=== PATIENT | male | born 1990 | race African-American/Black ===

== ENCOUNTER 2025-01-15 23:18 | Emergency (ER) | payer OTHER, SELFPAY ==
[2025-01-15 23:26] VITALS: BP 118/58; PULSE 62; RESP 20; TEMP 36.1; O2SAT 98; BMI 33.5
--- NOTE | 2025-01-16 00:02 | ED_ITS ---
HPI - General Adult General Chief complaint: General Medical Stated complaint: mouth pain Time Seen by Provider: 01/15/25 23:45 Source: patient Mode of arrival: ambulatory Limitations: no limitations History of Present Illness ED Provider: DR. Hackett HPI narrative: This is a 34-year-old male came in for evaluation of mouth/throat pain x2 days on and off, patient is concern of drip pharyngitis which he had recently and treated with a full course of amoxicillin. No difficulty swallowing, no difficulty breathing, able to manage his own secretions with no drooling. No recent travel, no history of exposure to sick contacts. Related Data Allergies Allergy/AdvReac Type Severity Reaction Status Date / Time No Known Allergies Allergy Verified 01/15/25 23:29 Review of Systems Review of Systems: All other systems are reviewed and are negative Constitutional: Reports as per HPI and Reports no additional constitutional complaints Eyes: Reports as per HPI and Reports no additional eye complaints Reports system reviewed and no additional complaints, except as documented Cardiovascular: Reports as per HPI and Reports no additional cardiovascular complaints Respiratory: Reports as per HPI and Reports no additional respiratory complaints Gastrointestinal: Reports as per HPI and Reports no additional gastrointestinal complaints Genitourinary: Reports no additional female genitourinary complaints Musculoskeletal: Reports no additional musculoskeletal complaints Skin/Breast: Reports system reviewed and no additional complaints, except as docu Psychiatric: Reports no additional psychiatric complaints Endocrine: Reports no additional endocrine complaints Hematologic/Lymphatic: Reports no additional hematologic/lymphatic complaints Allergic/Immunologic: Reports no additional allergic/immunologic complaints Reports system reviewed and no additional complaints, except as documented and Reports Abnormal speech present [facility] Social History Social History Smoked in Last 30 Days: No Use of substances other than those prescribed or required for medical reasons: No Advance Directives: No Advance Directives Information Provided: Yes Do you have a plan to hurt others: No Plan Physical Exam ED Vital Signs: Vital Signs - 24 hr 01/15/25 23:26 Temperature 97.0 F Pulse Rate 62 Respiratory Rate 20 Blood Pressure 118/58 L Pulse Oximetry 98 BMI result Body Mass Index 33.5 Vital signs have been reviewed and appear to be correct. Blood pressure elevated. Heart rate normal. Respiratory rate normal. Temperature normal. Oxygen saturation normal. Appearance: Alert. Oriented X3. No acute distress. Head: Normal external exam. Normocephalic. Atraumatic. No Solano signs noted. No raccoon eyes noted Eyes: PERRLA. EOMI. Conjunctiva and sclera normal. Eyelids normal. ENT: TM's Normal. Pharynx normal. Uvula midline. Moist mucous membranes. No trismus noted. No drooling noted. No muffled voice noted. Neck: Normal inspection. Neck supple. FROM. No adenopathy. Thyroid Normal. No meningeal signs. No neck mass noted. CVS: Normal heart rate and rhythm. Heart sound normal. No murmurs noted. Pulses normal throughout. Respiratory: No respiratory distress. Painless inspiration. Breath sounds maribel l. No wheezes/rales/rhonchi noted. Chest nontender. No accessory muscle usage noted or decreased air movement noted. Abdomen: Soft and nontender. Bowel sounds normal in all 4 quadrants. No distention noted. No organomegaly noted. No visible injury noted. Back: No CVA tenderness. Full range of motion noted. Skin: Skin warm and dry. Normal skin color. Normal skin turgor. No rashes/lesions/lacerations noted. Extremities: No lower extremity edema. Extremities exhibit normal range of motion. Extremities nontender. Neuro: Oriented X 3. Cranial nerve exam: II-XII are grossly intact No motor deficit. No sensory deficit. Reflexes normal. Course Reevaluation(s) Reevaluation #1: 34-year-old male came in with sore throat, mouth pain, negative rapid strep for strep pharyngitis, negative also for viral upper respiratory infection. Time: 01:12 Medical Decision Making Differential Diagnosis Differential Diagnoses: The differential diagnosis associated with the presentation includes (Strep pharyngitis, FINISH PATCHER, viral pharyngitis.) Admission/Observation Consideration of admission/observation: Escalation of care including admiss ion/observation considered Lab Data MDM Lab Attestation statement: I reviewed the patient's lab results. Labs: Lab Results 01/15/25 01/16/25 Range/Units 23:44 00:21 Influenza Type A (PCR) NEGATIVE (Negative) Influenza Type B (PCR) NEGATIVE (Negative) RSV RNA Qual (PCR) NEGATIVE (Negative) SARS-CoV-2 RNA (RT-PCR) NEGATIVE (Negative) S. pyogenes GrpA RADHA Negative (Negative) Discharge Plan Discharge Clinical Impression: Acute sore throat Patient Disposition: Home, Self-Care Instructions: Pharyngitis (ED) Referrals: Karl Tierney MD [Primary Care Provider, Internal Medicine] Print Language: Gabonese
[2025-01-16 00:18] LABS: IDNOW Serial# 55D5AD1C; Strep A Nucleic Acid Negative (Negative)
--- OUTSIDE RECORDS SUMMARY | 2025-01-16 00:28 | XMS_ITS | Encounter Summary ---
Author Organization [facility] Address [address] [place] [address] Care Team Providers Care Stable Attendant Name Role Phone Pcp, No Primary Care Provider Unavailabl e Karl Tierney MD Primary Care Provider Unavail able Encounter Details Date Type Department Care Team (Late st Contact Info) Description 03/21/2024 Scanned Document [address] [place] [phone] Provider, Generic Social History Tobacco Use Types Packs/Day Years Used Date Smoking Tobacco: Never Passive Smoke Exposure: Never Smokeless Tobacco: Never Alcohol Use Standard Drinks/Week Comments Yes 0 (1 standard drink = 0.6 oz pur e alcohol) Sex and Gender Information Value Date Recorded Sex Assigned at Male 03/16/2024 8:28 AM EST Legal Sex Male 2:21 PM EST Gender Identity Male 03/16/2024 8:28 AM EST Sexual Orientation Choose not to disclose 2024 8:28 AM EST documented as of this encounter Plan of Treatment Not on file documented as of this encounter Visit Diagnoses Not on filedocumented in this encounter Care Teams Stable Attendant Relationship Specialty Start Date End Date Pcp, No PCP - General General Medicine 03/21/24 04/25/24 Karl Tierney MD PCP - General Internal Medicine 04/26/24 documented as of this encounter
--- OUTSIDE RECORDS SUMMARY | 2025-01-16 00:29 | XMS_ITS | Clinical Summary ---
Author Organization [facility] Address [address] [place] [address] Phone Care Team Providers Care Ironing Pleater Name Role Phone Karl Tierney MD Primary Care Provider [phone] Allergies No known active allergies Medications cholecalciferol (VITAMIN D-3) 50 mcg (2,000 unit) tablet Take by mouth. 4 Active fluticasone propionate (FLONASE) 50 mcg/actuation nasal spray Administer 1 spray into each nostril 1 (one) time each day. Shake gently. Before first use, prime pump. After use, clean tip and replace cap. 48 g 1 5 Active orphenadrine (NORFLEX) 100 mg 12 hr tablet Take 1 tablet (100 mg total) by mouth 2 (two) times a day if needed for muscle spasms for up to 5 days. Do not crush, chew, or split. 10 tablet 5 Active benzocaine (ORAJEL) 10 % mucosal gel Use in the mouth or throat 4 (four) times a day if needed for mucositis. 5.3 g 5 11/01/19 26 Active diazePAM (VALIUM) 5 mg tablet TAKE 1 TABLET BY MOUTH EVERY DAY AT BEDTIME FOR 14 DAYS NEEDED FOR SLEEP 5 Active triamcinolone (NASACORT) 55 mcg nasal inhaler INHALE ONE TO TWO SPRAYS INTO EACH NOSTRIL EVERY DAY 5 Active amoxicillin (AMOXIL) 500 mg capsule Take 1 capsule (500 mg total) by mouth every 12 (twelve) hours for 10 days. 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 Overview (12/27/2023): CXR & TB CLINIC Encounters Date Type Department Care Team Description 12/26/2024 12:01 AM EDT - 12/26/2024 2:33 AM EDT [facility] Emergency [address] [place] [phone] Zain Toscano MD Strep pharyngitis (Primary Dx) Discharge Disposition: Home or Self Care 12/21/2024 9:15 AM EDT Office Visit Walk-In Clinic - [address] [phone] Chapin Alcantar PORTFOLIO STRATEGIST Sensation of fullness in both ears (Primary Dx) 10/31/2024 12:04 AM EDT - 10/31/2024 12:40 AM EDT [address] [phone] Oral aphthous ulcer (Primary Dx) Discharge Disposition: Home or Self Care 10/24/2024 9:30 AM EDT Office Visit Internal Medicine - [address] [phone] Bridget Brannon NP Nasal congestion with rhinorrhea (Primary Dx); Throat tightness; Gastroesophageal reflux disease without esophagitis; Temporomandibular joint disease 10/20/2024 6:52 PM EDT - 10/20/2024 7:51 PM EDT [facility] Emergency [address] [place] [phone] Kathe Naylor MD TMJ tenderness, bilateral (Primary Dx) Discharge Disposition: Home or Self Care from Last 3 Months Immunizations Immunization Administration Dates Next Due DTP 03/02/1994, 1,1989,06/16,1989 [id number] (Pentacel) 2mo to less than 5yo 06/09/1990,03/09/1990 Hepatitis A Pediatric (Havri x; Vaqta) 12mo to less than 19yo 09/09/2000,06/19/1997 Hepatitis B Pediatric (Enger ix B; Recombivax HB) to less than 20 yo 09/09/2000,01/21/1999,12/19/1998 Influenza Quadravalent, MDCK , 0.5ml, preservative free (Flucelvax) 6mo and older 01/22/2021,12/07/2017 Influenza Quadravalent, MDCK , 0.5ml, with preservative (Flucelvax) 6mo and older 12/24/2016 Influenza trivalent, 0.5mL, preservative free (Fluarix; FluLaval; Fluzone) ages 6mo and older (Afluria) 3 years and older 12/21/2023,01/03/2019,12/31/2015,12/12,12/23/2013,12/06/2012,12/24/2011 ,12/22/2010,12/25/2009,11/28/2008,12/12,01/13/2007 MMR, measles mumps and rubel la Live (Priorix; M-M-R II) 12mo and older 02/21/1995,06/09/1990 Meningococcal MCV4P 08/25/2007 OPV 03/02/1994, 1,1989,04/29 PPD Test 08/25/2007 Td Tetanus diptheria (Tdvax) 7yo and older 11/07/2017,02/01/2001 Tdap Tetanus diptheria acell ular pertussis (Boostrix; Adacel) 7yo and older 08/25/2007 Varicella live (Varivax) 12m o and older 06/12/2003 Surgical History Surgery Date Site/Laterality Comments OTHER SURGICAL HISTORY PROCEDURE: DENIES PREVIOUS SURGERY Medical History Medical History Date Comments 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 DX:PPD positive; COMMENT: CXR & TB CLINIC Family History Medical History Relation Name Comments No Known Problems Brother 1 No Known Problems Brother 2 No Known Problems Father No Known Problems Maternal Grandfather No Known Problems Maternal Grandmother No Known Problems Mother No Known Problems Paternal Grandfather No Known Problems Paternal Grandmother No Known Problems Sister Relation Name Status Comments Brother 1 Alive 1974 Brother 2 Alive 1978 Father Alive Duran sutherland 10/12 Maternal Grandfather Maternal Grandmother Mother Alive Kia Ko 06/28/56 Paternal Grandfather Paternal Grandmother Sister Alive Social History Tobacco Use Types Packs/Day Years Used Date Smoking Tobacco: Never Smokeless Tobacco: Never Tobacco Cessation:Counseling Given: Not Answered Alcohol Use Standard Drinks/Week Comments No 0 (1 standard drink = 0.6 oz pur e alcohol) Housing Instability Answer Date Recorde d Are you worried that in the next 2 months you may not have stable housing? No 07/09/2024 Food Access & Nutrition Answer Date Rec orded Do you have access to a vari ety of food including fruits and vegetables? Yes 07/09/2024 Access to Healthcare Answer Date Record ed Within the last 3 months, ho w many times did you visit the emergency department for your medical care? 4 07/09/2024 Health Literacy Answer Date Recorded How often do you need to hav e someone help you when you read instructions, pamphlets, or other written material from your doctor or pharmacy? Never 07/09/2024 Caregiver: How often do you need to have someone help you when you read instructions, pamphlets, or other written material from your doctor or pharmacy? Not on file 07/09/2024 Financial Risk Answer Date Recorded How hard is it for you to pa y for the very basics like food, housing, medical care, and air conditioning / heating? Not very hard 07/09/2024 Transportation Answer Date Recorded Has the lack of transportati on kept you from meetings, work, or from getting things needed for daily living? No Has the lack of transportati on kept you from medical appointments or from getting medications? No 07/09/2024 Social Isolation Answer Date Recorded How often do you feel lonely or isolated from th ose around you? Rarely 07/09/2024 Food Risk Answer Date Recorded Within the past 12 months we worried whether our food would run out before we got money to buy more. Never true 07/09/2024 Within the past 12 months th e food we bought just didn't last and we didn't have money to get more. Never true 07/09/2024 Dependent Care Answer Date Recorded Do you need help finding or paying for care for your loved ones. For example, child support officer or elderly care for an older adult? No 07/09/2024 Education Answer Date Recorded Do you think completing more education or training, like finishing a GED, going to college, or learning a trade, would be helpful for you? No 07/09/2024 Employment and Income Answer Date Recor ded During the last four weeks, have you been actively looking for work? No 07/09/2024 Living Situation Answer Date Recorded What is your living situation? Unrecognized valu e 07/09/2024 Sex and Gender Information Value Date Recorded Sex Assigned at Male 04/18/2024 4:15 PM EST Legal Sex Male 10:04 AM EST Gender Identity Male 04/18/2024 4:15 PM EST Sexual Orientation Choose not to disclose 2024 4:15 PM EST Obstetrics History Last Filed Vital Signs Vital Sign Reading Time Taken Comments Blood Pressure 120/75 12/25/2024 11:19 PM EDT Pulse 65 12/25/2024 11:19 PM EDT Temperature 36.7 C (98.1 F) 12/25/2024 11:19 PM EDT Respiratory Rate 18 12/25/2024 11:19 PM EDT Oxygen Saturation 100% 12/25/2024 11:19 PM EDT Inhaled Oxygen Concentration - - Weight 109 kg (240 lb) 12/25/2024 11:19 PM EDT Height 180.3 cm (5' 11 ) 12/25/2024 11:19 PM EDT Body Mass Index 33.47 12/25/2024 11:19 PM EDT Plan of Treatment Upcoming Encounters Date Type Department Care Team (Late st Contact Info) Description 02/01/2025 8:20 AM EST Consult Gastroenterology - [address] [place] [phone] Candi Sutton NP [address] [facility] [address] [place] [address] Health Maintenance Due Date Last Done Comments HPV Vaccines (1 - 3-dose SCDM series) 02/25/2016 HIV Screening 02/09/2022 COVID-19 Vaccine (3 - season) 2024 07/16/2020, 06/25/2020 Influenza Vaccine (#1) 2024 , 01/30/2022, 01/22/2021, Additional history exists Social Influencers of Health Screening 07/09/2025 07/09/2024 DTaP,Tdap,and Td Vaccines (9 - Td or Tdap) 11/08/2027 11/07/2017, 08/25/2007, 02/01/2001, Additional history exists Cholesterol Screening (Lipid Panel) 06/21/2028 06/22/2023 RSV Immunization Adult Patients (1 - 1-dose 75+ series) 02/25/2064 HIB Vaccines Completed 06/09/1990, 03/09/1990 IPV Vaccines Completed 03/02/1994, 08/12, 06/09/1990, Additional history exists MMR Vaccines Completed 02/21/1995, 06/09/1990 Hepatitis A Vaccines Completed 09/09/2000, 06/19/18 98 Hepatitis B Vaccines Completed 09/09/2000, 01/21/1999, 12/19/1998 Varicella Vaccines Aged Out 06/12/2003 No longer eligible based on patient's age to complete this topic Meningococcal ACWY Vaccine Completed 08/25/2007 Hepatitis C Screening Completed 07/30/2021 Depression Screening Completed 07/09/2024 Meningococcal B Vaccine Aged Out No l onger eligible based on patient's age to complete this topic Pneumococcal Vaccine: Pediatrics (0 to 5 Years) and At-Risk Patients (6 to 49 Years) Aged Out No longer eligible based on patient's age to complete this topic RSV Immunization Patients Under 20 months Aged Out No longer eligible based on patient's age to complete this topic Procedures Procedure Name Priority Date/Time Associated Diagnosis Comments RAPID STREP A SCREEN STAT 12/26/2024 12:10 AM EDT LIPID PANEL Routine 06/22/2023 HEPATITIS C SCREENING Routine 07/30/2021 from Last 3 Months or Most Recently Relevant to Health Maintenance Results * (ABNORMAL) Rapid strep A screen (12/26/2024 12:10 AM EDT) Strep A Ag Positive(A ) Negative, Invalid 12/26/2024 1:42 AM EDT [facility] Swab Structure of anterior region of neck / Unknown Non-blood Collection / Unknown 12/26/2024 12:10 AM EDT 12/26/2024 1:24 AM EDT Zain Toscano MD LAB MICROBIOLOGY - GENERAL ORDERABLES Final Result [facility] [address] [place] [address], * (ABNORMAL) Lipid panel (06/22/2023) LDL/HDL Ratio 4 0 - 4 Triglycerides 54 0 - 150 mg/dL Cholesterol 202(A) 0 - 200 mg/dL HDL 46 >=40 mg/dL LDL Cholesterol 146(A) 0 - 100 mg/dL Blood Venous blood specimen / Unknown Vinny Rolon MD LAB BLOOD ORDERABLES Kiesha l Result * Hepatitis C Screening (07/30/2021) Pathologist [facility] Hepatitis C Screening Abstracted Historical Provider HEALTH MAINTENANCE Final Result from Last 3 Months or Most Recently Relevant to Health Maintenance Additional Health Concerns Infection Onset Date Last Indicated Streptococcus Group A 03/23/2024 12/26/2024 Insurance [facility] Care Teams Ironing Pleater Relationship Specialty Start Date End Date Karl Tierney MD [address] [place] [phone] PCP - General Internal Medicine 03/24/24
--- OUTSIDE RECORDS SUMMARY | 2025-01-16 00:29 | XMS_ITS | Clinical Summary ---
Author Organization [facility] Address [address] [place] [address] Care Team Providers Care Entry Manager Name Role Phone Karl Tierney MD Primary Care Provider Unavail able Allergies No known active allergies Medications famotidine (PEPCID) 40 MG tabletIndication s:Gastroesophage al reflux disease without esophagitis Take 1 tablet (40 mg total) by mouth nightly. 30 tablet 3 03/16/2024 Active nystatin (MYCOSTATIN) 721849 UNIT/ML suspensionIndica tions:Thrush Take 5 mL (500,000 Units total) by mouth 4 (four) times a day. Swish, gargle and spit out 100 mL 03/19/2024 Active diazepam (VALIUM) 5 MG tablet TAKE 1 TABLET BY MOUTH EVERY DAY AT BEDTIME FOR 14 DAYS NEEDED FOR SLEEP 04/21/2024 Active triamcinolone (NASACORT AQ) 55 MCG/ACT Aerosol nasal sprayIndications :Postnasal drip 2 sprays into each nostril daily. 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 Overview (03/16/2024): [facility] Resolved Problems Problem Noted Date Diagnosed Date Resolved Date Acute COVID-19 11/28/2023 04/16/2024 Encounters Date Type Department Care Team Description 01/03/2025 8:00 AM EDT Office Visit [facility] [address] [place] [phone] David Patricio MD Chronic tonsillitis (Primary Dx); Gastroesophageal reflux disease without esophagitis; Recurrent tonsillitis 11/06/2024 7:45 AM EDT Office Visit [facility] [address] [phone] David Patricio MD Gastroesophageal reflux disease without esophagitis (Primary Dx); Chronic tonsillitis from Last 3 Months Immunizations Immunization Administration Dates Next Due DTP 03/02/1994, 1,1989,06/16,1989 DTaP / HiB / IPV 06/09/1990,03/09/1990 Hep A, 2 Dose 09/09/2000,06/19/1997 Hep B, Adolescent or Pediatric 09/09/2000,1998,12/19/1998 Influenza, Quadrivalent (FLU CELVAX) MDCK, Preservative Free IM 01/30/2022,01/22/2021,12/07/2017 Influenza, Trivalent (FLUARI X, AFLURIA, FLULAVAL, FLUZONE) Preservative Free IM 12/21/2023,01/03/2019,12/31/2015,12/12,12/23/2013,12/06/2012,12/24/2011 ,12/22/2010,12/25/2009,11/28/2008,12/12,01/13/2007 MMR 02/21/1995,06/09/1990 Meningococcal MCV4P (Menactra) 08/25/2007 OPV 03/02/1994, 1,1989,04/29 PPD Test 08/25/2007 Tdap 08/25/2007 Varicella 06/12/2003 Social History Tobacco Use Types Packs/Day Years Used Date Smoking Tobacco: Never Passive Smoke Exposure: Never Smokeless Tobacco: Never Tobacco Cessation:Counseling Given: Not Answered Alcohol Use Standard Drinks/Week Comments Yes 0 (1 standard drink = 0.6 oz pur e alcohol) Sex and Gender Information Value Date Recorded Sex Assigned at Male 03/16/2024 8:28 AM EST Legal Sex Male 2:21 PM EST Gender Identity Male 03/16/2024 8:28 AM EST Sexual Orientation Choose not to disclose 2024 8:28 AM EST Last Filed Vital Signs Vital Sign Reading Time Taken Comments Blood Pressure 118/77 03/21/2024 3:03 PM EST Pulse 62 03/21/2024 3:03 PM EST Temperature 36.4 C (97.6 F) 03/21/2024 3:03 PM EST Respiratory Rate 12 03/21/2024 3:03 PM EST Oxygen Saturation 99% 03/21/2024 3:03 PM EST Inhaled Oxygen Concentration - - Weight 111 kg (245 lb) 01/03/2025 7:45 AM EDT Height 180.3 cm (5' 11 ) 01/03/2025 7:45 AM EDT Body Mass Index 34.17 01/03/2025 7:45 AM EDT Plan of Treatment Health Maintenance Due Date Last Done Comments Hepatitis C Virus Screening 1989 HIV Screening 2002 DTaP/Tdap/Td Vaccines (7 - Td or Tdap) 08/24/2017 08/25/2007, 03/02/1994, 08/25/1990, Additional history exists Influenza Vaccine 10/12/2024 12/21/2023, , 01/30/2022, Additional history exists COVID-19 Vaccine ( season) 2024 Hepatitis B Vaccines Completed 09/09/2000, 01/21/1999, 12/19/1998 HPV Vaccines (No Doses Required) Completed Pneumococcal Vaccine: Pediatric (0-5 Years) and At-Risk Patients (6 to 49 Years) Aged Out No longer eligible based on patient's age to complete this topic Procedures Procedure Name Priority Date/Time Associated Diagnosis Comments COMPLETE BLOOD COUNT, WITHOUT DIFFERENTIAL Routine 01/03/2025 9:18 AM EDT Recurrent tonsillitis IMMUNOGLOBULIN A (IGA), SERUM Routine 01/03/2025 9:18 AM EDT Recurrent tonsillitis IMMUNOGLOBULIN G SUBCLASSES (ACTIVE) Routine 01/03/2025 9:18 AM EDT Recurrent tonsillitis from Last 3 Months Results * Immunoglobulin G Subclasses (01/03/2025 9:18 AM EDT) Pathologist [facility] IgG 1 795 382 - 929 mg/dL [facility] IgG 2 496 241 - 700 mg/dL [facility] IgG 3 77 22 - 178 mg/dL [facility] IgG 4 22.2 4 - 86 mg/dL [facility] IgG, Serum 1,438 600 - 1,640 mg/dL [facility] Blood specimen / Unknown 01/03/2025 9:18 AM EDT 01/03/2025 9:18 AM EDT us David Patricio MD LAB BLOOD ORDERABLES Final Re sult [facility] [address] [place] [phone] * COMPLETE BLOOD COUNT, WITHOUT DIFFERENTIAL (01/03/2025 9:18 AM EDT) Pathologist [facility] White Blood Cell Count 5.8 3.8 - 10.8 Thousand/u L [facility] Red Blood Cell Count 4.87 4.20 - 5.80 Million/uL [facility] Hemoglobin 14.6 13.2 - 17.1 g/dL [facility] Hematocrit 42.8 38.5 - 50.0 % [facility] MCV 87.9 80.0 - 100.0 fL [facility] MCH 30.0 27.0 - 33.0 pg [facility] MCHC 34.1 32.0 - 36.0 g/dL [facility] Comment: For adults, a slight decrease in the calculated MCHC value (in the range of 30 to 32 g/dL) is most likely not clinically significant; however, it should be interpreted with caution in correlation with other red cell parameters and the patient's clinical condition. RDW 12.2 11.0 - 15.0 % [facility] Platelet Count 254 140 - 400 Thousand/u L [facility] MPV 9.2 7.5 - 12.5 fL [facility] Blood specimen / Unknown 01/03/2025 9:18 AM EDT 01/03/2025 9:18 AM EDT us David Patricio MD LAB BLOOD ORDERABLES Final Re sult Performing Organization Address City/[facility]/ZIP Co de Phone Number [facility] [address] [place] [phone] * IMMUNOGLOBULIN A (IGA), SERUM (01/03/2025 9:18 AM EDT) Immunoglobulin A (IgA) 223 47 - 310 mg/dL [facility] Blood specimen / Unknown 01/03/2025 9:18 AM EDT 01/03/2025 9:18 AM EDT us David Patricio MD LAB BLOOD ORDERABLES Final Re sult Performing Organization Address City/[facility] Co de Phone Number [facility] [address] [place] [address] from Last 3 Months Insurance [facility] Care Teams Entry Manager Relationship Specialty Start Date End Date Karl Tierney MD PCP - General Internal Medicine 04/26/24
--- OUTSIDE RECORDS SUMMARY | 2025-01-16 00:29 | XMS_ITS ---
Author Name [facility] Organization Unknown Results Test Name/Text Value Interpretation Date Range Source Bacteria Throat Cult SEE NOTE Normal 03/24/2024 [facility] History of Medication Use Medication Directions Dispensed Refills Start Date End Date Stat us diazepam (VALIUM) 5 MG tablet TAKE 1 TABLET BY MOUTH EVERY DAY AT BEDTIME FOR 14 DAYS NEEDED FOR SLEEP 04/21/2024 active fluconazole (diFLUcan) 100 MG tablet Take 1 tablet (100 mg total) by mouth daily. Take 2 tablets today then take 1 tablet by mouth daily. 03/21/2024 03/30/2024 active nystatin (MYCOSTATIN) [id number] UNIT/ML suspension Take 5 mL (500,000 Units total) by mouth 4 (four) times a day. Swish, gargle and spit out 03/19/2024 active famotidine (PEPCID) 40 MG tablet Take 1 tablet (40 mg total) by mouth nightly. 03/16/2024 active triamcinolone (NASACORT AQ) 55 MCG/ACT Aerosol nasal spray 2 sprays into each nostril daily. 03/16/2024 active Problems Problem Status Onset Date Problem Type Date of Resoluti on Source Class 2 obesity active 2024-03-16 ProblemAct [facility] Vitamin D deficiency active 2023-06-22 ProblemAct [facility] PPD positive active 2007-08-28 ProblemAct [facility] Post-nasal drip active 2024-04-27 ProblemAct [facility] Gastroesophageal reflux disease without esophagitis active 2024-04-27 ProblemAct [facility] Chronic rhinitis active 2024-04-27 ProblemAct [facility] Rib pain on left side active 2023-11-28 ProblemAct [facility] Immunizations Vaccine Date Source Lot Number Status Influenza, Trivalent (FLUARI X, AFLURIA, FLULAVAL, FLUZONE) Preservative Free IM 12/21/2023 [facility] [id number] completed Influenza, Trivalent (FLUARI X, AFLURIA, FLULAVAL, FLUZONE) Preservative Free IM [facility]/20[facility] [id number] completed Influenza, Trivalent (FLUARI X, AFLURIA, FLULAVAL, FLUZONE) Preservative Free IM 12/21/2023 [facility] [id number] completed Influenza, Trivalent (FLUARI X, AFLURIA, FLULAVAL, FLUZONE) Preservative Free IM 12/21/2023 [facility] [id number] completed Influenza, Quadrivalent (FLU CELVAX) MDCK, Preservative Free IM 01/30/2022 [facility] [id number] completed Influenza, Quadrivalent (FLU CELVAX) MDCK, Preservative Free IM 01/30/2022 [facility] [id number] completed Influenza, Quadrivalent (FLU CELVAX) MDCK, Preservative Free IM 01/30/2022 [facility] [id number] completed Influenza, Quadrivalent (FLU CELVAX) MDCK, Preservative Free IM 01/30/2022 [facility] [id number] completed Influenza, Quadrivalent (FLU CELVAX) MDCK, Preservative Free IM 01/22/2021 [facility] [id number] completed Influenza, Quadrivalent (FLU CELVAX) MDCK, Preservative Free IM 01/22/2021 [facility] [id number] completed Influenza, Quadrivalent (FLU CELVAX) MDCK, Preservative Free IM 01/22/2021 [facility] [id number] completed Influenza, Quadrivalent (FLU CELVAX) MDCK, Preservative Free IM 01/22/2021 [facility] [id number] completed Influenza, Trivalent (FLUARI X, AFLURIA, FLULAVAL, FLUZONE) Preservative Free IM 01/03/2019 [facility] completed Influenza, Trivalent (FLUARI X, AFLURIA, FLULAVAL, FLUZONE) Preservative Free IM 01/03/2019 [facility] completed Influenza, Trivalent (FLUARI X, AFLURIA, FLULAVAL, FLUZONE) Preservative Free IM 01/03/2019 [facility] completed Influenza, Quadrivalent (FLU CELVAX) MDCK, Preservative Free IM 12/07/2017 [facility] [id number] completed Influenza, Quadrivalent (FLU CELVAX) MDCK, Preservative Free IM 12/07/2017 [facility] [id number] completed Influenza, Quadrivalent (FLU CELVAX) MDCK, Preservative Free IM 12/07/2017 [facility] [id number] completed Influenza, Quadrivalent (FLU CELVAX) MDCK, Preservative Free IM 12/07/2017 [facility] [id number] completed Influenza, Trivalent (FLUARI X, AFLURIA, FLULAVAL, FLUZONE) Preservative Free IM 12/31/2015 [facility] [id number] completed Influenza, Trivalent (FLUARI X, AFLURIA, FLULAVAL, FLUZONE) Preservative Free IM 12/31/2015 [facility] [id number] completed Influenza, Trivalent (FLUARI X, AFLURIA, FLULAVAL, FLUZONE) Preservative Free IM 12/31/2015 [facility] [id number] completed Influenza, Trivalent (FLUARI X, AFLURIA, FLULAVAL, FLUZONE) Preservative Free IM 12/12/2014 [facility] [id number] completed Influenza, Trivalent (FLUARI X, AFLURIA, FLULAVAL, FLUZONE) Preservative Free IM 12/12/2014 [facility] [id number] completed Influenza, Trivalent (FLUARI X, AFLURIA, FLULAVAL, FLUZONE) Preservative Free IM 12/12/2014 [facility] [id number] completed Influenza, Trivalent (FLUARI X, AFLURIA, FLULAVAL, FLUZONE) Preservative Free IM 12/12/2014 [facility] [id number] completed Influenza, Trivalent (FLUARI X, AFLURIA, FLULAVAL, FLUZONE) Preservative Free IM 12/23/2013 [facility] completed Influenza, Trivalent (FLUARI X, AFLURIA, FLULAVAL, FLUZONE) Preservative Free IM 12/23/2013 [facility] completed Influenza, Trivalent (FLUARI X, AFLURIA, FLULAVAL, FLUZONE) Preservative Free IM 12/23/2013 [facility] completed Influenza, Trivalent (FLUARI X, AFLURIA, FLULAVAL, FLUZONE) Preservative Free IM 12/23/2013 [facility] completed Influenza, Trivalent (FLUARI X, AFLURIA, FLULAVAL, FLUZONE) Preservative Free IM 12/06/2012 [id number] completed Influenza, Trivalent (FLUARI X, AFLURIA, FLULAVAL, FLUZONE) Preservative Free IM 12/06/2012 [id number] completed Influenza, Trivalent (FLUARI X, AFLURIA, FLULAVAL, FLUZONE) Preservative Free IM 12/06/2012 [id number] completed Influenza, Trivalent (FLUARI X, AFLURIA, FLULAVAL, FLUZONE) Preservative Free IM 12/24/2011 [id number] completed Influenza, Trivalent (FLUARI X, AFLURIA, FLULAVAL, FLUZONE) Preservative Free IM 12/24/2011 [id number] completed Influenza, Trivalent (FLUARI X, AFLURIA, FLULAVAL, FLUZONE) Preservative Free IM 12/24/2011 [id number] completed Influenza, Trivalent (FLUARI X, AFLURIA, FLULAVAL, FLUZONE) Preservative Free IM 12/22/2010 [id number] completed Influenza, Trivalent (FLUARI X, AFLURIA, FLULAVAL, FLUZONE) Preservative Free IM 12/22/2010 [facility] [id number] completed Influenza, Trivalent (FLUARI X, AFLURIA, FLULAVAL, FLUZONE) Preservative Free IM 12/22/2010 [id number] completed Influenza, Trivalent (FLUARI X, AFLURIA, FLULAVAL, FLUZONE) Preservative Free IM 12/22/2010 [id number] completed Influenza, Trivalent (FLUARI X, AFLURIA, FLULAVAL, FLUZONE) Preservative Free IM 12/25/2009 [id number] completed Influenza, Trivalent (FLUARI X, AFLURIA, FLULAVAL, FLUZONE) Preservative Free IM 12/25/2009 [place] [id number] completed Influenza, Trivalent (FLUARI X, AFLURIA, FLULAVAL, FLUZONE) Preservative Free IM 12/25/2009 [id number] completed Influenza, Trivalent (FLUARI X, AFLURIA, FLULAVAL, FLUZONE) Preservative Free IM 12/25/2009 [facility] [id number] completed Influenza, Trivalent (FLUARI X, AFLURIA, FLULAVAL, FLUZONE) Preservative Free IM 11/28/2008 [facility] [id number] completed Influenza, Trivalent (FLUARI X, AFLURIA, FLULAVAL, FLUZONE) Preservative Free IM 11/28/2008 [facility] [id number] completed Influenza, Trivalent (FLUARI X, AFLURIA, FLULAVAL, FLUZONE) Preservative Free IM 11/28/2008 [facility] [id number] completed Influenza, Trivalent (FLUARI X, AFLURIA, FLULAVAL, FLUZONE) Preservative Free IM 12/25/2007 [facility] [id number] completed Influenza, Trivalent (FLUARI X, AFLURIA, FLULAVAL, FLUZONE) Preservative Free IM 12/25/2007 [facility] [id number] completed Influenza, Trivalent (FLUARI X, AFLURIA, FLULAVAL, FLUZONE) Preservative Free IM 12/25/2007 [facility] [id number] completed Meningococcal MCV4P (Menactra) 08/25/2007 [facility] [id number] AA completed Meningococcal MCV4P (Menactra) 08/25/2007 [facility] [id number] AA completed Meningococcal MCV4P (Menactra) 08/25/2007 [facility] [id number] AA completed Meningococcal MCV4P (Menactra) 08/25/2007 [facility] [id number] AA completed PPD Test 08/25/2007 [facility] [id number] completed PPD Test 08/25/2007 [facility] [id number] completed PPD Test 08/25/2007 [facility] [id number] completed Tdap 08/25/2007 [facility] [id number] completed Tdap 08/25/2007 [facility] [id number] completed Tdap 08/25/2007 [facility] [id number] completed Influenza, Trivalent (FLUARI X, AFLURIA, FLULAVAL, FLUZONE) Preservative Free IM 01/13/2007 [facility] [id number] completed Influenza, Trivalent (FLUARI X, AFLURIA, FLULAVAL, FLUZONE) Preservative Free IM 01/13/2007 [facility] [id number] completed Influenza, Trivalent (FLUARI X, AFLURIA, FLULAVAL, FLUZONE) Preservative Free IM 01/13/2007 [facility] [id number] completed Influenza, Trivalent (FLUARI X, AFLURIA, FLULAVAL, FLUZONE) Preservative Free IM 01/13/2007 [facility] [id number] completed Varicella 06/12/2003 [facility] completed Varicella 06/12/2003 [facility] completed Varicella 06/12/2003 [facility] completed Varicella 06/12/2003 [facility] completed Hep A, 2 Dose 09/09/2000 [facility] completed Hep A, 2 Dose 09/09/2000 [facility] completed Hep A, 2 Dose 09/09/2000 [facility] completed Hep A, 2 Dose 09/09/2000 [facility] completed Hep B, Adolescent or Pediatric 09/09/2000 [facility] completed Hep B, Adolescent or Pediatric 09/09/2000 [facility] completed Hep B, Adolescent or Pediatric 09/09/2000 [facility] completed Hep B, Adolescent or Pediatric 01/21/1999 [facility] completed Hep B, Adolescent or Pediatric 01/21/1999 [facility] completed Hep B, Adolescent or Pediatric 01/21/1999 [facility] completed Hep B, Adolescent or Pediatric 12/19/1998 [facility] completed Hep B, Adolescent or Pediatric 12/19/1998 [facility] completed Hep B, Adolescent or Pediatric 12/19/1998 [facility] completed Hep A, 2 Dose 06/19/1997 [facility] completed Hep A, 2 Dose 06/19/1997 [facility] completed Hep A, 2 Dose 06/19/1997 [facility] completed MMR 02/21/1995 [facility] completed MMR 02/21/1995 [facility] completed MMR 02/21/1995 [facility] completed DTP 03/02/1994 [facility] completed DTP 03/02/1994 [facility] completed DTP 03/02/1994 [facility] completed DTP 03/02/1994 [facility] completed OPV 03/02/1994 [facility] completed OPV 03/02/1994 [facility] completed OPV 03/02/1994 [facility] completed DTP 08/25/1990 [facility] completed DTP 08/25/1990 [facility] completed DTP 08/25/1990 [facility] completed OPV 08/25/1990 [facility] completed OPV 08/25/1990 [facility] completed OPV 08/25/1990 [facility] completed OPV 08/25/1990 [facility] completed DTaP / HiB / IPV 06/09/1990 [facility] complete d DTaP / HiB / IPV 06/09/1990 [facility] complete d DTaP / HiB / IPV 06/09/1990 [facility] complete d MMR 06/09/1990 [facility] completed MMR 06/09/1990 [facility] completed MMR 06/09/1990 [facility] completed MMR 06/09/1990 [facility] completed DTaP / HiB / IPV 03/09/1990 [facility] complete d DTaP / HiB / IPV 03/09/1990 [facility] complete d DTaP / HiB / IPV 03/09/1990 [facility] complete d DTP 1989 [facility] completed DTP 1989 [facility] completed DTP 1989 [facility] completed DTP 1989 [facility] completed DTP 1989 [facility] completed DTP 1989 [facility] completed DTP 1989 [facility] completed OPV 1989 [facility] completed OPV 1989 [facility] completed OPV 1989 [facility] completed OPV 1989 [facility] completed DTP 1989 [facility] completed DTP 1989 [facility] completed DTP 1989 [facility] completed OPV 1989 [facility] completed OPV 1989 [facility] completed OPV 1989 [facility] completed OPV 1989 [facility] completed Encounters Encounter Type Encounter Reason Primary Diagnosis Location Date Ambulatory Difficulty Swallowing Difficulty Swallowing [facility] 01/03/2025 Ambulatory Laryngitis Laryngitis [facility] 11/06/2024 Ambulatory Follow-up Follow-up [facility] 06/28/2024 Ambulatory Follow-up Follow-up [facility] 04/26/2024 Ambulatory Candidal stomatitis [facility]idal stomatitis [facility] 03/21/2024 Ambulatory Post Nasal Drip Post Nasal Drip [facility] 03/16/2024 Care Team Organization Name Specialty Phone Email Start Date End Da te [place] [facility] 01/03/2025 [facility] LLUVIA SIERRA [facility] 01/03/2025 [facility] 07/01/2024 [place] [facility] 04/26/2024 [place] [facility] NO PCP Primary Care 03/22/2024 [facility] 03/21/2024 [facility] 01/30/2024 [facility] Termed, PROVIDER Primary Care 02/23/202310/12 [facility] Nicolasa Alegria Primary Care 05/19/20222023 [facility] Carl Jacobs Primary Care 01/19/202210/30
--- OUTSIDE RECORDS SUMMARY | 2025-01-16 00:29 | XMS_ITS | Encounter Summary ---
Author Organization [facility] Address [address] [place] [address] Care Team Providers Care Check Pilot Name Role Phone Pcp, No Primary Care Provider Unavailabl e Karl Tierney MD Primary Care Provider Unavail able Encounter Details Date Type Department Care Team (Late st Contact Info) Description 03/21/2024 Scanned Document [address] [place] [phone] Provider, Generic Social History Tobacco Use Types [...] on filedocumented in this encounter Care Teams Check Pilot Relationship Specialty Start Date End Date Pcp, No PCP - General General Medicine 03/21/24 04/25/24 Karl Tierney MD PCP - General Internal Medicine 04/26/24 documented as of this encounter
[2025-01-16 01:03] LABS: Resp Syncy Virus RNA Qual PCR NEGATIVE (Negative); SARS COV2 PCR INHOUSE NEGATIVE (Negative)
[2025-01-16 01:21] VITALS: BP 118/58; PULSE 62; RESP 20; TEMP 36.1; O2SAT 98
== END 2025-01-16 01:22 | disposition home or self-care (01) ==
PROVIDERS: Emergency Provider Emergency Medicine; PCP Internal Medicine
DX: J02.9 Acute pharyngitis, unspecified (principal); Z03.818 Encounter for observation for suspected exposure to other biological agents ruled out
CPT/HCPCS: 87637; 87651; 99283; 99284

== ENCOUNTER 2025-01-29 23:23 | Emergency (ER) | payer OTHER, SELFPAY ==
--- NOTE | 2025-01-29 | ECG_ITS ---
Test Reason : DIZINESS Blood Pressure : */* mmHG Vent. Rate : 62 BPM Atrial Rate : 62 BPM P-R Int : 178 ms QRS Dur : 96 ms QT Int : 384 ms P-R-T Axes : 50 6 12 degrees QTcB Int : 389 ms Normal sinus rhythm Normal ECG No previous ECGs available Referred By: Generic ED Physician Electronically Signed By: STACY YA
[2025-01-29 23:37] VITALS: BP 105/53; PULSE 63; RESP 16; TEMP 36.3; O2SAT 97; BMI 34.1
[2025-01-30 00:03] LABS: MANUAL DIFF FLAG NO
[2025-01-30 00:04] LABS: Hematocrit 40.3 % (42.0-52.0); Hemoglobin 13.9 g/dl (14.0-18.0); Imm Gran Abs Auto 0.04 X10*3/uL (0.00-0.03); Imm Gran Pct Auto 0.7 % (0.0-0.4); Lymphocytes Absolute Auto 2.5 X10*3/uL (1.2-4.9); Mean Corpuscular HGB Conc 34.5 g/dl (31.0-36.0); Mean Corpuscular Hemoglobin 29.5 pg (27.0-33.0); Mean Corpuscular Volume 85.6 fL (80.0-98.0); NRBC Abs Auto 0.000 X10*3/uL (0.0-0.012); NRBC Pct Auto 0.0 /100WBC (0.0-0.2); Platelet Count 207 X10*3/uL (160-400); Red Blood Count 4.71 X10*6/uL (4.60-5.80); White Blood Count 5.8 X10*3/uL (4.8-10.8)
[2025-01-30 00:17] LABS: Anion Gap 11 (12-20); Blood Urea Nitrogen 13 mg/dL (9-16); Calcium 9.2 mg/dL (8.4-10.2); Carbon Dioxide 27 mmol/L (22-29); Chloride 109 mmol/L (96-108); Creatinine Clr Calc Pharmacy 141.9; Estimated Glomerular Filt Rate > 60; Potassium 4.2 mmol/L (3.3-5.1); Sodium 143 mmol/L (135-145)
[2025-01-30 00:22] LABS: IDNOW Serial# 6674DD1D; Strep A Nucleic Acid Negative (Negative)
[2025-01-30 00:43] LABS: Resp Syncy Virus RNA Qual PCR NEGATIVE (Negative); SARS COV2 PCR INHOUSE NEGATIVE (Negative)
[2025-01-30 03:39] VITALS: BP 128/90; PULSE 64; RESP 20; TEMP 36.3; O2SAT 99
[2025-01-30] MEDS: Lidocaine HCl Viscous 2 % 15 ML SOLUTION MUCOUS MEM (04:01)
[2025-01-30] MEDS: Magnesium Hydrox/Alum Hydrox 30 ML ORAL.SUSP PO (04:01)
--- NOTE | 2025-01-30 05:08 | ED_ITS ---
HPI - General Adult General Chief complaint: Dizziness Stated complaint: strep throat? Time Seen by Provider: 01/30/25 02:34 Source: patient Mode of arrival: ambulatory Limitations: no limitations History of Present Illness ED Provider: Dr. Sakina Camarillo HPI narrative: Previously healthy 34-year-old male presenting with sore throat and jaw pain with the associated sensation of vertigo ongoing for the last 2 days or so. Describes dizziness with sitting up after lying down in bed. Symptoms started 2 days ago when he woke up from sleep. Describes sinus congestion but denies cough. Has been having a sore throat associated with swallowing particularly spicy foods. Pain is in the middle of his chest and lower throat. It is not located in the mouth. No known sick contacts or travel. Denies associated shortness of breath, vomiting, known sick contacts or recent travel. Has been swallowing his secretions without issue. Able to tolerate oral intake. Related Data Previous Rx's ?Medication ?Instructions ?Recorded omeprazole 20 mg capsule,delayed 20 mg PO DAILY #30 ca ps 01/30/25 release ondansetron 4 mg disintegrating 4 mg PO Q8H PRN nausea and 01/30/25 tablet vomiting #10 tabs Allergies Allergy/AdvReac Type Severity Reaction Status Date / Time No Known Allergies Allergy Verified 01/29/25 23:40 Review of Systems 2 Review of Systems: as per HPI, full review of systems performed and negative but for the above mentioned pertinent positives and negatives. [facility] Social History Social History Advance Directives: No Advance Directives Information Provided: Yes Physical Exam ED Exam Exam: GENERAL: Ill-Appearing, appears uncomfortable. SKIN: Normal skin color for ethnicity, warm, dry, no rashes noted. HEENT:? Normocephalic, atraumatic, no stridor, dry mucous membranes, no erythema in the posterior oropharynx, dentition intact, EOMI. NECK: Soft, supple, full ROM, midline structures nontender, no step-offs, no deformities, no lymphadenopathy. CHEST: Heart regular rhythm, no murmurs, symmetric chest rise and fall. PULMONARY: Clear to auscultation bilaterally, diminished at the bases, no labored breathing, no wheezes/rhales/rhonchi. ABDOMINAL: Soft, nondistended, nontender, positive bowel sounds in all quadrants. : Deferred. MUSCULOSKELETAL: Normal tone, full range of motion, no deformities, no peripheral edema. NEURO: Alert and oriented x3, CN II through XII intact, equal strength and sensation bilateral upper and lower extremities, no focal neurologic deficits.? PSYCHIATRIC: Flat affect, fluid speech, good eye contact and appropriate demeanor. Vital Signs: Vital Signs - 24 hr 01/29/25 23:37 01/30/25 03:39 Temperature 97.4 F 97.4 F Pulse Rate 63 64 Respiratory Rate 16 20 Blood Pressure 105/53 L 128/90 H Pulse Oximetry 97 99 Oxygen Delivery Method Room Air Room Air BMI result Body Mass Index 34.1 Medications Administered Discontinued Medications Generic Name Dose Route Start Last Admin Trade Name Freq PRN Reason Stop Dose Admin Al Hydroxide/Mg Hydroxide 30 ml 01/30/25 03:10 01/30/25 04:01 Magnesium Hydrox/Alum Hydrox 30 Ml Oral.Susp PO 01/30/25 03:11 30 ml ONCE ONE Administration Lidocaine HCl 15 ml 01/30/25 03:10 01/30/25 04:01 Lidocaine Hcl Viscous 2 % 15 Ml Solution MUCOUS MEM 01/30/25 03:11 15 ml ONCE ONE Administration Medical Decision Making Medical Decision Making [facility] Narrative: Patient presents today with a chief complaint of sore throat. Differential diagnosis includes pharyngitis, GERD, as well as ENT emergencies such as epiglottitis, retropharyngeal abscess, peritonsillar abscess, Pee's angina, angioedema, allergic reaction, among many others. On exam, patient is nontoxic, tolerating their secretions, without signs of respiratory distress. Strep swab is negative. Symptoms are consistent with vertigo and URI. Discuss this with him at length as well as importance of taking antacids to help with potential GERD which may be causing some of his chest discomfort and sore throat. Encouraged him to follow up with primary care. Discussed strict return precautions. Discharged home in stable condition. Differential Diagnosis Differential Diagnoses: The differential diagnosis associated with the presentation includes (as above) Admission/Observation Consideration of admission/observation: Escalation of care including admission/observation considered Lab Data [facility] Lab Attestation statement: I reviewed the patient's lab results. 01/29/25 23:54 01/29/25 23:54 Labs: Lab Results 11/01/29/25 01/29/25 Range/Units 23:51 23:52 23:54 WBC 5.8 (4.8-10.8) X10*3/uL RBC 4.71 (4.60-5.80) X10*6/uL Hgb 13.9 L (14.0-18.0) g/dl Hct 40.3 L (42.0-52.0) % MCV 85.6 (80.0-98.0) fL MCH 29.5 (27.0-33.0) pg MCHC 34.5 (31.0-36.0) g/dl RDW 12.0 (11.0-16.0) % Plt Count 207 (160-400) X10*3/uL MPV 9.0 L (9.4-12.4) fL Immature Gran % (Auto) 0.7 H (0.0-0.4) % Neut % (Auto) 46.3 (45-73) % Lymph % (Auto) 42.4 H (20-40) % [place] % (Auto) 8.5 (2-11) % Eos % (Auto) 1.6 (0-4) % Baso % (Auto) 0.5 (0-2) % Lymph # (Auto) 2.5 (1.2-4.9) X10*3/uL [place] # (Auto) 0.5 (0.1-1.2) X10*3/uL Eos # (Auto) 0.1 (0.0-0.4) X10*3/uL Baso # (Auto) 0.0 (0.0-0.2) X10*3/uL Abs Immat Gran (auto) 0.04 H (0.00-0.03) X10*3/uL Absolute Neuts (auto) 2.7 (2.0-8.3) x10*3/uL Absolute Nucleated RBC 0.000 (0.0-0.012) X10*3/uL Nucleated RBC % (auto) 0.0 (0.0-0.2) /100WBC Sodium 143 (135-145) mmol/L Potassium 4.2 (3.3-5.1) mmol/L Chloride 109 H (96-108) mmol/L Carbon Dioxide 27 (22-29) mmol/L Anion Gap 11 L (12-20) BUN 13 (9-16) mg/dL Creatinine 0.92 (0.5-1.4) mg/dL Estim Creat Clear Calc 141.9 Estimated GFR > 60 Random Glucose 94 (60-115) mg/dL Calcium 9.2 (8.4-10.2) mg/dL Monoscreen (Negative) Influenza Type A (PCR) NEGATIVE (Negative) Influenza Type B (PCR) NEGATIVE (Negative) RSV RNA Qual (PCR) NEGATIVE (Negative) SARS-CoV-2 RNA (RT-PCR) NEGATIVE (Negative) S. pyogenes GrpA RADHA Negative (Negative) 01/30/25 Range/Units 04:21 WBC (4.8-10.8) X10*3/uL RBC (4.60-5.80) X10*6/uL Hgb (14.0-18.0) g/dl Hct (42.0-52.0) % MCV (80.0-98.0) fL MCH (27.0-33.0) pg MCHC (31.0-36.0) g/dl RDW (11.0-16.0) % Plt Count (160-400) X10*3/uL MPV (9.4-12.4) fL Immature Gran % (Auto) (0.0-0.4) % Neut % (Auto) (45-73) % Lymph % (Auto) (20-40) % [place] % (Auto) (2-11) % Eos % (Auto) (0-4) % Baso % (Auto) (0-2) % Lymph # (Auto) (1.2-4.9) X10*3/uL [place] # (Auto) (0.1-1.2) X10*3/uL Eos # (Auto) (0.0-0.4) X10*3/uL Baso # (Auto) (0.0-0.2) X10*3/uL Abs Immat Gran (auto) (0.00-0.03) X10*3/uL Absolute Neuts (auto) (2.0-8.3) x10*3/uL Absolute Nucleated RBC (0.0-0.012) X10*3/uL Nucleated RBC % (auto) (0.0-0.2) /100WBC Sodium (135-145) mmol/L Potassium (3.3-5.1) mmol/L Chloride (96-108) mmol/L Carbon Dioxide (22-29) mmol/L Anion Gap (12-20) BUN (9-16) mg/dL Creatinine (0.5-1.4) mg/dL Estim Creat Clear Calc Estimated GFR Random Glucose (60-115) mg/dL Calcium (8.4-10.2) mg/dL Monoscreen Negative (Negative) Influenza Type A (PCR) (Negative) Influenza Type B (PCR) (Negative) RSV RNA Qual (PCR) (Negative) SARS-CoV-2 RNA (RT-PCR) (Negative) S. pyogenes GrpA RADHA (Negative) Independent Interpretation I performed an independent interpretation of an: EKG Interpretation: My independent interpretation of the ECG reveals normal sinus rhythm with rate of62 , normal axis, normal intervals, no ST elevations or depressions to suggest ischemic changes, no previous for comparison. Radiology Impression Discussion of test interpretation with radiology: I have reviewed the radiologist's reading. Prescription Management I considered prescription management with: Pain Medication and Other (antacids) Social Determinants Patient?s care significantly limited by Social Determinants of Health including: Other Social Determinant of Health Discharge Plan Discharge Clinical Impression: Pharyngitis with viral syndrome, GERD with esophagitis Patient Disposition: Home, Self-Care Instructions: Pharyngitis (ED), GERD (Gastroesophageal Reflux Disease) (ED) Additional Instructions: Your throat pain may be related to acid reflux. You should start taking an antacid medication daily to help with this. Alternatively, the pain could be related to a viral infection that is just starting. Fortunately, your COVID, flu, strep and mononucleosis screens were all negative. This is very reassuring. That being said, we can not test for every virus that causes viral pharyngitis and you should continue to treat your symptoms with supportive care (Tylenol for pain, drinking plenty of fluids and resting as much as possible). Return to the emergency department immediately with any new or worsening symptoms including: Worsening pain despite medication, fevers greater than 100?, difficulty swallowing, chest pain, difficulty breathing, any new symptom that concerns you. Call 911 with any medical emergency. Prescriptions: New omeprazole 20 mg capsule,delayed release(DR/EC) 20 mg PO DAILY Qty: 30 0RF ondansetron 4 mg tablet,disintegrating 4 mg PO Q8H PRN (Reason: nausea and vomiting) Qty: 10 0RF Interventions: ED Discharge Assessment Last Done: 01/30/25 05:26 Discharge Date/Time: 01/30/25 05:26 Print Language: Bengali
[2025-01-30 05:26] VITALS: BP 128/90; PULSE 64; RESP 20; TEMP 36.3; O2SAT 99
--- OUTSIDE RECORDS SUMMARY | 2025-01-30 14:29 | XMS_ITS | Clinical Summary ---
Author Organization [facility] Address [address] [place] [address] Care Team Providers Care Light Rail Vehicle Operator Name Role Phone Karl Tierney MD Primary Care Provider Unavail able Allergies No known active allergies Medications famotidine (PEPCID) 40 MG tabletIndication s:Gastroesophage al reflux disease without esophagitis Take 1 tablet (40 mg total) by mouth nightly. 30 tablet 3 03/16/2024 Active nystatin (MYCOSTATIN) 581440 UNIT/ML suspensionIndica tions:Thrush Take 5 mL (500,000 [...] Description 01/03/2025 8:00 AM EDT Office Visit [facility] [address] [place] [phone] David Patricio MD Chronic tonsillitis (Primary Dx); Gastroesophageal reflux disease without esophagitis; Recurrent tonsillitis 11/06/2024 7:45 AM EDT Office Visit [facility] [address] [phone] David Patricio MD Gastroesophageal reflux [...] G Subclasses (01/03/2025 9:18 AM EDT) Pathologist [facility] IgG 1 795 382 - 929 mg/dL [facility] IgG 2 496 241 - 700 mg/dL [facility] IgG 3 77 22 - 178 mg/dL [facility] IgG 4 22.2 4 - 86 mg/dL [facility] IgG, Serum 1,438 600 - 1,640 mg/dL [facility] Blood specimen / Unknown 01/03/2025 9:18 AM EDT 01/03/2025 9:18 AM EDT us David Patricio MD LAB BLOOD ORDERABLES Final Re sult [facility] [address] [place] [phone] * COMPLETE BLOOD COUNT, WITHOUT DIFFERENTIAL (01/03/2025 9:18 AM EDT) Pathologist [facility] White Blood Cell Count 5.8 3.8 - 10.8 Thousand/u L [facility] Red Blood Cell Count 4.87 4.20 - 5.80 Million/uL [facility] Hemoglobin 14.6 13.2 - 17.1 g/dL [facility] Hematocrit 42.8 38.5 - 50.0 % [facility] MCV 87.9 80.0 - 100.0 fL [facility] [facility] MCH 30.0 27.0 - 33.0 pg [facility] MCHC 34.1 32.0 - 36.0 g/dL [facility] Comment: For adults, a slight decrease in the calculated MCHC value (in the range of 30 to 32 g/dL) is most likely not clinically significant; however, it should be interpreted with caution in correlation with other red cell parameters and the patient's clinical condition. RDW 12.2 11.0 - 15.0 % [facility] Platelet Count 254 140 - 400 Thousand/u L [facility] MPV 9.2 7.5 - 12.5 fL [facility] Blood specimen / Unknown 01/03/2025 9:18 AM EDT 01/03/2025 9:18 AM EDT us David Patricio MD LAB BLOOD ORDERABLES Final Re sult Performing Organization Address City/[facility]/ZIP Co de Phone Number [facility] [address] [place] [phone] * IMMUNOGLOBULIN A (IGA), SERUM (01/03/2025 9:18 AM EDT) Immunoglobulin A (IgA) 223 47 - 310 mg/dL [facility] Blood specimen / Unknown 01/03/2025 9:18 AM EDT 01/03/2025 9:18 AM EDT us David Patricio MD LAB BLOOD ORDERABLES Final Re sult Performing Organization Address City/[facility] Co de Phone Number [facility] [address] [place] [phone] from Last 3 Months Insurance * Guarantor: Herrera Rich Account Type Relation to Patient Date of Phone Billing Address Personal/Family Self 1990 [address] [facility] [address] [place] [id number] [facility] Care Teams Light Rail Vehicle Operator Relationship Specialty Start Date End Date Karl Tierney MD PCP - General Internal Medicine 04/26/24
--- OUTSIDE RECORDS SUMMARY | 2025-01-30 14:29 | XMS_ITS | Encounter Summary ---
Author Organization [facility] Address [address] [place] [address] Care Team Providers Care Order Desk Caller Name Role Phone Pcp, No Primary Care Provider Unavailabl e Karl Tierney MD Primary Care Provider Unavail able Encounter Details Date Type Department Care Team (Late st Contact Info) Description 03/21/2024 Scanned Document [address] [place] [phone] Provider, Generic Social History Tobacco Use Types [...] on filedocumented in this encounter Care Teams Order Desk Caller Relationship Specialty Start Date End Date Pcp, No PCP - General General Medicine 03/21/24 04/25/24 Karl Tierney MD PCP - General Internal Medicine 04/26/24 documented as of this encounter
--- OUTSIDE RECORDS SUMMARY | 2025-01-30 14:29 | XMS_ITS | Encounter Summary ---
Author Organization [facility] Address [address] [place] [address] Care Team Providers Care Checker In Name Role Phone Pcp, No Primary Care Provider Unavailabl e Karl Tierney MD Primary Care Provider Unavail able Encounter Details Date Type Department Care Team (Late st Contact Info) Description 03/21/2024 Scanned Document [address] [place] [phone] Provider, Generic Social History Tobacco Use Types [...] on filedocumented in this encounter Care Teams Checker In Relationship Specialty Start Date End Date Pcp, No PCP - General General Medicine 03/21/24 04/25/24 Karl Tierney MD PCP - General Internal Medicine 04/26/24 documented as of this encounter
--- OUTSIDE RECORDS SUMMARY | 2025-01-30 14:29 | XMS_ITS | Clinical Summary ---
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 Overview (12/27/2023): CXR & TB CLINIC Encounters Date Type Department Care Team Description 12/26/2024 12:01 AM EDT - 12/26/2024 2:33 AM EDT Emergency [facility] Emergency [address] [place] [phone] Zain Toscano MD Strep pharyngitis (Primary Dx) Discharge Disposition: Home or Self Care 12/21/2024 9:15 AM EDT Office Visit [facility] - [address] [phone] Chapin Alcantar, AUTHORIZATION MANAGER Sensation of fullness in both ears (Primary Dx) 10/31/2024 12:04 AM EDT - 10/31/2024 12:40 AM EDT [facility] Emergency [address] [place] [phone] Oral aphthous ulcer (Primary Dx) Discharge Disposition: Home or Self Care from Last 3 Months Immunizations Immunization Administration Dates Next Due DTP 03/02/1994, 1,1989,06/16,1989 [id number] (Pentacel) 2mo to less than 5yo 06/09/1990,03/09/1990 [...] DX:PPD positive; COMMENT: CXR & TB CLINIC GERD (gastroesophageal reflux disease) Headache Family History Medical History Relation Name Comments No Known Problems Brother 1 No Known Problems Brother 2 No Known Problems Father No Known Problems Maternal Grandfather No Known Problems Maternal Grandmother No Known Problems Mother No Known Problems Paternal Grandfather No Known Problems Paternal Grandmother No Known Problems Sister Relation Name Status Comments Brother 1 Alive 1975 Brother 2 Alive 1978 Father Alive Duran [...] care for your loved ones. For example, exceptional children teacher or elderly care for an older adult? [...] EST Consult Gastroenterology - [address] [facility] [address] [place] [phone] Candi Sutton NP [address] [facility] [address] [place] [address] Health Maintenance Due Date Last Done Comments HPV Vaccines (1 - 3-dose SCDM series) 02/25/2016 HIV Screening 02/09/2022 COVID-19 Vaccine ( season) 2024 07/16/2020, 06/25/2020 Influenza Vaccine (#1) [...] 12:10 AM EDT LIPID PANEL Routine 06/22/2023 HM HEPATITIS C SCREENING Routine 07/30/2021 from Last 3 Months or Most Recently Relevant to Health Maintenance Results * (ABNORMAL) Rapid strep A screen (12/26/2024 12:10 AM EDT) [facility] Strep A Ag Positive(A ) Negative, Invalid 12/26/2024 1:42 AM EDT [facility] Swab Structure of anterior region of neck / Unknown Non-blood Collection / Unknown 12/26/2024 12:10 AM EDT 12/26/2024 1:24 AM EDT Zain Toscano MD LAB MICROBIOLOGY - GENERAL ORDERABLES Final Result [facility] [address] [place] [address], * (ABNORMAL) Lipid panel (06/22/2023) LDL/HDL Ratio 4 0 - 4 Triglycerides 54 0 - 150 mg/dL Cholesterol 202(A) 0 - 200 mg/dL HDL 46 >=40 mg/dL LDL Cholesterol 146(A) 0 - 100 mg/dL Blood Venous blood specimen / Unknown Vinny Provider LAB BLOOD ORDERABLES Kiesha l Result * Hepatitis C Screening (07/30/2021) Hepatitis C Screening Abstracted Historical Provider HEALTH MAINTENANCE Final Result from Last 3 Months or Most Recently Relevant to Health Maintenance Additional Health Concerns Infection Onset Date Last Indicated Streptococcus Group A 03/23/2024 12/26/2024 Insurance [facility] Care Teams Spindraw Operator Relationship Specialty Start Date End Date Karl Tierney MD [address] [place] [address] PCP - General Internal Medicine 03/24/24
== END 2025-01-30 05:26 | disposition home or self-care (01) ==
PROVIDERS: Emergency Provider Emergency Medicine; PCP Internal Medicine
DX: B34.9 Viral infection, unspecified (principal); J02.9 Acute pharyngitis, unspecified; K21.00 Gastro-esophageal reflux disease with esophagitis, without bleeding; Z03.818 Encounter for observation for suspected exposure to other biological agents ruled out
CPT/HCPCS: 36415; 80048; 85025; 86308; 87637; 87651; 93005; 99283; 99284

== ENCOUNTER → 2025-01-29 23:45 | Outpatient (BNV) | payer OTHER, SELFPAY | PROVIDERS: Emergency Provider Emergency Medicine; PCP Internal Medicine; Visit Provider Internal Medicine | DX: R42 Dizziness and giddiness (principal) | CPT/HCPCS: 93010 ==